=== PATIENT | male | born 1955 | race Caucasian/White ===

== ENCOUNTER 2017-02-15 17:32 | Inpatient (IN) | payer OTHER ==
[~2017-02-15] VITALS: Ht 172.7 cm; Wt 110.2 kg
[~2017-02-15 17:32] MED LIST: AMOXICILLIN500 M1 PO; ASPIR 8181 MG PO; JANUVIA100 M1 PO; LANTI; LIPI20 PO; LOSARTAN POTASS25 M1 PO; MOTRIN800 MG PO; PANTOPRAZOLE SO40 M1 PO; VITAMIN D32000 I2 PO
--- NOTE | 2017-02-15 17:55 | NUR ---
PT IS A 61 YEAR OLD MALE, PRESENTS TO ED WITH C/O DIZZINESS AND GENERALIZED HEADACHE, STARTED TODAY. PT REPORTS CHECKED HIS BLOOD SUGAR AT HOME AND MACHINE READ "HI". PTS DAUGHTER AT BEDSIDE REPORTS PT HAS BEEN URINATING FREQUENTLY, AND PT REPORTS THIRSTY. PT BREATHING IS EVEN AND UNLABORED, NO S/S OF RESPRAITORY DISTRSES. SPEECH IS CLEAR AND APPROPRIATE. PT A/O X4. PT HOOKED TO FULL TRUMPET PLAYER. MSE PERFORMED BY DR. YU. BLOOD SUGAR CHECKED AT BEDSIDE OF 369. GIGI SCHROEDER MADE AWARE.
[2017-02-15 18:19] LABS: BASOPHIL % 0.5 % (0-2); PLATELET COUNT 262 x10^3mcL (130-400); RED CELL DISTRIBUTION WIDTH 12.5 % (11.5-14.5)
[2017-02-15 18:40] LABS: CALCIUM 8.8 mg/dL (8.5-10.1); CARBON DIOXIDE 27.1 mmol/L (21-32); CHLORIDE SERUM 102 mmol/L (98-107); GFR1 > 60 mL/min; GLUCOSE SERUM 392 mg/dL (74-106); POTASSIUM SERUM 4.1 mmol/L (3.5-5.1); SODIUM SERUM 135 mmol/L (136-145)
[2017-02-15 18:45] LABS: ALBUMIN 3.8 g/dL (3.4-5.0); ALKALINE PHOSPHATASE 96 U/L (46-116); ALT/SGPT 34 U/L (16-63); BILIRUBIN TOTAL 0.38 mg/dL (0.20-1.00); TOTAL PROTEIN, SERUM 6.9 g/dL (6.4-8.2)
[2017-02-15] MEDS ORDERED: METFORMIN HCL1000 M2 PO (19:05)
[2017-02-15] MEDS ORDERED: BAYER ASPIRIN R81 MG PO (19:06)
--- NOTE | 2017-02-15 19:21 | NUR ---
REPORT CALLED TO LOIS YAO, HE WILL ASSUEM CARE PRIMARY RN POST TRASNFER.
[2017-02-15 20:00] VITALS: BP 129/80
--- NOTE | 2017-02-15 20:05 | NUR ---
REC'D AOX4, SPEECH CLEAR. FAMILY AT THE BEDSIDE. C/O MARX 05/22. DENIES DIZZINES. NOTED MILD GENERALIZED WEAKNESS, PT AMBULATORY. ATTACHED TELE, NOTED WITH SB. DENIES CHEST PAIN. ON ROOM AIR, NO SOB NOTED. ORIENTED PT ROOM AND SURROUNDINGS, CALL LIGHT WITHIN REACH, PROVIDED REPORT TO LOIS YAO FOR CONTIUITY OF CARE.
--- NOTE | 2017-02-15 20:11 | NUR ---
DR. WILLETT IN TO SEE PT AND FAMILY.
--- NOTE | 2017-02-15 20:20 | NUR ---
MEDICATED PATIENT WITH TYLENOL FOR 05/22 HEADACHE (SEE MAR)
[2017-02-15 20:33] LABS: AST/SGOT 17 U/L (15-37)
[2017-02-15 21:29] LABS: CHOLESTEROL/HDL RATIO 3.8
[2017-02-15 21:33] LABS: FREE T4 1.14 ng/dL (0.76-1.46); FREE THYROXINE INDEX 2.2 ug/dL (1.4-4.5); T4(THYROXINE) 7.2 ug/dL (4.7-13.3)
[2017-02-15 21:44] LABS: microscopic required? NO
[2017-02-15 21:48] LABS: UA SPECIFIC GRAVITY 1.015 (1.005-1.035); urine erythrocyte NEGATIVE (NEGATIVE)
[2017-02-15 22:11] LABS: AMPHETAMINE QUAL UR NONE DETECTED (NEG <=1000)
--- NOTE | 2017-02-16 05:06 | NUR ---
PATIENT RESTING IN BED. NO SIGNFICANT CHANGES NOTED. NO DISTRESS NOTED. IV FLUID INFUSING WELL. CALL LIGHT WITHIN REACH. WILL CONTINUE TO MONITOR.
[2017-02-16 05:23] VITALS: BP 120/73
[2017-02-16 06:06] LABS: BASOPHIL % 0.6 % (0-2); PLATELET COUNT 239 x10^3mcL (130-400)
[2017-02-16 06:22] LABS: CALCIUM 8.3 mg/dL (8.5-10.1); CARBON DIOXIDE 27.5 mmol/L (21-32); CHLORIDE SERUM 107 mmol/L (98-107); CREATININE SERUM 0.6 mg/dL (0.7-1.3); GFR1 > 60 mL/min; GLUCOSE SERUM 162 mg/dL (74-106); LACTIC DEHYDROGENASE (LDH) 156 U/L (100-190); LIPASE 148 IU/L (73-393); MAGNESIUM 1.6 mg/dL (1.8-2.4); PHOSPHOROUS 3.9 mg/dL (2.5-4.9); POTASSIUM SERUM 3.4 mmol/L (3.5-5.1); SODIUM SERUM 140 mmol/L (136-145)
--- NOTE | 2017-02-16 07:40 | NUR ---
RECEIVED THE PATIENT AWAKE AND ORIENTED TO PERSON, PLACE AND TIME. DENIED NAUSEA/VOMITING, PAIN OR SHORTNESS OF BREATH. IVF NS VIA H/L TO LAC. TELE # 6 READS SINUS RHYTHMS WITH EPISODES OF SINUS BRADYCARDIA. CALL LIGHT WITHIN REACH. SIDE RAILS UP X3.
--- NOTE | 2017-02-16 09:04 | NUR ---
DR. CALERO AND THE TEAM WERE MAKING ROUND TO SEE THE PATIENT. THE CARE PLAN WAS DISCUSSED WITH THE PATIENT AND FAMILY MEMBERS AT BEDSIDE.
[2017-02-16 10:00] VITALS: BP 142/79
--- NOTE | 2017-02-16 10:08 | NUR ---
THE PATIENT AMBULATED IN THE HALLWAY WITH SLOW BUT STEADY GAIT.
[2017-02-16 13:55] VITALS: BP 140/71
[2017-02-16 17:03] VITALS: BP 125/77
--- NOTE | 2017-02-16 18:31 | NUR ---
THE PATIENT HAS AMBULATED IN THE HALLWAY FOR FOUR TIMES WITH SLOW BUT STEADY GAIT DURING THE SHIFT. THE PATIENT DENIED DIZZINESS, WEAKNESS OR PAIN THROUGHOUT THE SHIFT.
--- NOTE | 2017-02-16 20:22 | NUR ---
Awake and verbally responsive. No resp.distress noted. Denies pain at this time. Able to move all ext.well. SCD in place. Call light within reach. Will cont.to monitor.
[2017-02-16 22:10] VITALS: BP 130/78
--- NOTE | 2017-02-17 04:07 | NUR ---
Afebrile. No significant change in condition noted. No cough or congestion observed. Ambulating well. Denies numbness or tingling sensation on all ext. In no apparent distress.
[2017-02-17 05:34] LABS: BASOPHIL % 0.9 % (0-2); PLATELET COUNT 280 x10^3mcL (130-400); RED CELL DISTRIBUTION WIDTH 12.8 % (11.5-14.5)
[2017-02-17 05:47] LABS: CALCIUM 8.8 mg/dL (8.5-10.1); CARBON DIOXIDE 27.3 mmol/L (21-32); CHLORIDE SERUM 105 mmol/L (98-107); CREATININE SERUM 0.6 mg/dL (0.7-1.3); GFR1 > 60 mL/min; GLUCOSE SERUM 98 mg/dL (74-106); MAGNESIUM 1.7 mg/dL (1.8-2.4); PHOSPHOROUS 4.7 mg/dL (2.5-4.9); POTASSIUM SERUM 3.7 mmol/L (3.5-5.1); SODIUM SERUM 141 mmol/L (136-145)
[2017-02-17 06:44] VITALS: BP 133/88
--- NOTE | 2017-02-17 07:25 | NUR ---
RECEIVED ROSEANNA AAOX4, ABLE TO COMMUNICATE AND FOLLOW COMMANDS, PALPABLE PULSES TO BUE/BLE. ON ROOM AIR, DENIES SOB, AND RESPIRAITONS EVEN AND UNLABORED. DENIES N/V/D. VOIDS FREELY WITH BRP AND UP WITH MINIMAL ASSIST. DENIES PAIN. IV TO LH CDI AND INFUSING NS AT 150ML/HR FREELY. BED TO LOWEST POSITION, SIDE RAILS UPX2, CALL LIGHT AND BELONGINGS WITHIN REACH. WILL CONTINUE TO MONITOR.
--- NOTE | 2017-02-17 08:30 | NUR ---
ROUNDS MADE BY , RESIDENTS, AND MEDICAL STAFF AT BEDSIDE, PATIENT WILL BE ABLE TO BE DISCHARGED TODAY IN THE AFTERNOON, ALL QUESTIONS AND CONCERNS ADDRESSED, CALL LIGHT AND BELONGINGS WITHIN REACH, AND WILL CONTINUE TO MONITOR.
[2017-02-17 11:12] VITALS: BP 131/75
[2017-02-17 13:16] VITALS: BP 131/75
[2017-02-17] MEDS ORDERED: MECLIZINE HYD12.5 MG PO (13:46)
--- NOTE | 2017-02-17 14:15 | NUR ---
DISCHARGE INSTRUCTIONS GIVEN TO ROSEANNA AT BEDSIDE, MEDICATION SCRIPT GIVEN, ALL QUESTIONS AND CONCERNS ADDRESSED, CALL LIGHT AND BELONGINGS WITHIN REACH, AND WILL CONTINUE TO MONITOR.
--- NOTE | 2017-02-17 14:44 | NUR ---
PATIENT DISCHARGE TO HOME AAOX4, NO DISTRESS NOTED, RESPIRAITONS EVEN AND UNLABORED, DENIES PAIN, IV D/C AND CANNULA INTACT, PATIENT TOOK ALL DISCHARGE INSTRUCTIONS, MEDICATION SCRIPT, AND ALL PERSONAL BELOGINGS, PATIENT ACCOMPANIED BY TILE FITTER TO LOBBY.
== END 2017-02-17 14:44 | disposition home or self-care (01) | DRG 637 ==
LOC: ED 17:32 → DU 19:06 → MU 19:06 → DU 19:48 → MU 02-16 12:20
PROVIDERS: Emergency Medicine; Family Medicine; ADMIT Family Medicine
DX: E11.65 Type 2 diabetes mellitus with hyperglycemia (principal); K85.90 Acute pancreatitis without necrosis or infection, unspecified; N17.0 Acute kidney failure with tubular necrosis; E87.1 Hypo-osmolality and hyponatremia; D68.69 Other thrombophilia; E87.6 Hypokalemia; E83.42 Hypomagnesemia; I10 Essential (primary) hypertension; E78.5 Hyperlipidemia, unspecified; E66.8 Other obesity; Z68.37 Body mass index [BMI] 37.0-37.9, adult; Z79.84 Long term (current) use of oral hypoglycemic drugs; Z79.4 Long term (current) use of insulin; Z79.82 Long term (current) use of aspirin; Z87.891 Personal history of nicotine dependence; Z96.652 Presence of left artificial knee joint
CPT/HCPCS: 80307; 82962; 83880; 84439; G0480; J1815; J3010; J3475; J7030; Q0092

== ENCOUNTER 2019-11-14 13:35 | Emergency (ER) | payer OTHER ==
[~2019-11-14] VITALS: Ht 180.3 cm; Wt 102.1 kg
[~2019-11-14 13:35] MED LIST changes: +BAYER ASPIRIN R81 MG PO; +MECLIZINE HYD12.5 MG PO; +METFORMIN HCL1000 M2 PO
[2019-11-14 14:19] VITALS: Ht 180.3 cm; Wt 102.1 kg
[2019-11-14 17:21] LABS: BASOPHIL % 0.6 % (0-2); PLATELET COUNT 259 x10^3mcL (130-400); RED CELL DISTRIBUTION WIDTH 12.7 % (11.5-14.5)
[2019-11-14 17:39] LABS: CALCIUM 9.6 mg/dL (8.5-10.1); CARBON DIOXIDE 30.3 mmol/L (21-32); CHLORIDE SERUM 96 mmol/L (98-107); CREATININE SERUM 0.9 mg/dL (0.7-1.3); GFR1 > 60 mL/min; GLUCOSE SERUM 354 mg/dL (74-106); POTASSIUM SERUM 3.9 mmol/L (3.5-5.1); SODIUM SERUM 134 mmol/L (136-145)
[2019-11-14 17:52] LABS: ALBUMIN 4.5 g/dL (3.4-5.0); ALKALINE PHOSPHATASE 116 U/L (46-116); ALT/SGPT 48 U/L (16-63); AST/SGOT 18 U/L (15-37); BILIRUBIN TOTAL 0.39 mg/dL (0.20-1.00); LIPASE 160 IU/L (73-393)
[2019-11-14 17:54] LABS: TOTAL PROTEIN, SERUM 8.5 g/dL (6.4-8.2)
[2019-11-14 20:17] VITALS: BP 138/85
== END 2019-11-14 20:39 | disposition home or self-care (01) ==
LOC: ED 13:35
PROVIDERS: Emergency Medicine
DX: R10.9 Unspecified abdominal pain (principal); K62.5 Hemorrhage of anus and rectum; M79.10 Myalgia, unspecified site
CPT/HCPCS: 36415; 87804; J7030; Q9967

== ENCOUNTER 2019-11-25 17:15 | Emergency (ER) | payer OTHER ==
[~2019-11-25] VITALS: Ht 177.8 cm; Wt 103.0 kg
[2019-11-25 17:35] VITALS: Ht 177.8 cm; Wt 103.0 kg
[2019-11-25 22:58] VITALS: BP 119/64
== END 2019-11-25 22:58 | disposition home or self-care (01) ==
LOC: ED 17:15
DX: N20.0 Calculus of kidney (principal); E11.65 Type 2 diabetes mellitus with hyperglycemia; I10 Essential (primary) hypertension; E78.00 Pure hypercholesterolemia, unspecified
CPT/HCPCS: 82962; J1885; J7030; Q0092

== ENCOUNTER 2021-01-15 16:30 | Emergency (ER) | payer OTHER ==
[~2021-01-15] VITALS: Ht 170.2 cm; Wt 104.3 kg
[~2021-01-15 16:30] MED LIST changes: +CIPRO500 MG PO; +DERMACINRX5000 UNIT; +FLA500 PO; -VITAMIN D32000 I2 PO
[2021-01-15 16:46] VITALS: BP 124/71; Ht 170.2 cm; Wt 104.3 kg
[2021-01-15] MEDS ORDERED: VOLTAREN100 GM TOP (17:41)
[2021-01-15] MEDS ORDERED: CAMBIA50 M1 PO (17:41)
[2021-01-15] MEDS ORDERED: ZIPSOR25 MG PO (17:42)
== END 2021-01-15 18:47 | disposition home or self-care (01) ==
LOC: ED 16:30
DX: M54.42 Lumbago with sciatica, left side (principal); S39.012A Strain of muscle, fascia and tendon of lower back, initial encounter; X58.XXXA Exposure to other specified factors, initial encounter; Y93.89 Activity, other specified; Y92.89 Other specified places as the place of occurrence of the external cause; Y99.8 Other external cause status
CPT/HCPCS: 82962; J1885